=== PATIENT | female | born 1940 | race Caucasian/White ===

== ENCOUNTER 2016-06-22 13:52 | Observation (INO) | payer BC, MEDICARE ==
[~2016-06-22] VITALS: Ht 157.5 cm; Wt 70.0 kg
[~2016-06-22 13:52] MED LIST: ALPR2TAB PO; ATEN-51 PO; ATOR40TA68 PO; CALC-67 PO; CHOL100062 PO; CYCL-117 PO; FLUO40CA10 PO; HYDR-762 PO; LISI20TA11 PO; RIVA10TA PO; VIT1TABL85 PO
[2016-06-22 15:06] VITALS: Ht 157.5 cm; Wt 70.0 kg
[2016-06-22] MEDS ORDERED: SOD CHLORIDE 0.9% 1,000 ML IV STA (16:11)
[2016-06-22 17:01] LABS: ADD SCAN DIFF NO
[2016-06-22] MEDS ORDERED: SOD CHLORIDE 0.9% 1,000 ML IV SCH (17:02)
[2016-06-22 17:08] LABS: BASOPHILS % 0.6 % (0.0-2.0); EOSINOPHILS # 0.3 10^3/ul (0.0-0.5); EOSINOPHILS % 4.7 % (0.0-7.0); HEMATOCRIT 38.6 % (37.0-47.0); HEMOGLOBIN 12.6 g/dl (12.0-16.0); LYMPHOCYTES % 19.2 % (15.0-51.0); MEAN CORPUSCULAR HEMOGLOBIN 33.6 pg (29.0-33.0); MEAN CORPUSCULAR HGB CONC 32.6 g/dl (32.0-37.0); MEAN CORPUSCULAR VOLUME 102.9 fl (82.0-101.0); MEAN PLATELET VOLUME 10.8 fl (7.4-10.4); MONOCYTE # 0.5 10^3/ul (0.3-0.9); MONOCYTES % 9.3 % (0.0-11.0); NEUTROPHIL # 3.5 10^3/ul (1.6-7.5); NEUTROPHILS % 65.8 % (39.0-77.0); PLATELET COUNT 221 10^3/UL (140-415); RED BLOOD COUNT 3.75 10^6/ul (4.20-5.40); RED CELL DISTRIBUTION WIDTH 12.8 % (11.5-14.5); WHITE BLOOD COUNT 5.3 10^3/ul (4.8-10.8)
--- NOTE | 2016-06-22 17:09 | ERA ---
ER Documentation Chief Complaint Date/Time DATE: 06/22/16 TIME: 17:04 Chief Complaint [address]ENT BY DR ANDRADE FOR EVAL OF NEW ONSET AFIB HPI This is a 76-year-old female who was sent by her primary after being visited in a convalescent home for rehab for a right ankle fracture. The patient was noted to be tachycardic and was sent for A. fib workup. The patient says she is asymptomatic and is not short of breath having any headaches having any focal neurological complaints such as numbness weakness or speech change. She has had a slight cough while in the convalescent home. Denies chest pain denies any pain in the extremities. Patient denies any history of atrial fibrillation says she has been told she has had irregular heartbeat at times. The patient is currently on Xarelto 10 mg a day since May 06. Patient also states that she was told her left pupil is bigger than the right by the doctor seeing her as well as EMS. She states that her left eye is "bad" however she notes that she does not have irregular pupils at baseline. No headache no facial numbness or droop ROS All systems reviewed and are negative except as per history of present illness. Medications Home Meds Reported Medications Atorvastatin* (Atorvastatin*) 40 Mg Tablet, 40 MG PO QHS, #30 TAB 11/03/15 Lisinopril* (Lisinopril*) 20 Mg Tablet, 20 MG PO BID, #30 TAB 11/03/15 Hydrocodone Bit-Acetaminophen* ([place]*) 10-325 Mg Tablet, 1 TAB PO Q4H Y for PAIN, TAB 11/03/15 Atenolol* (Atenolol*) 25 Mg Tablet, 25 MG PO BID, TAB 08/14/14 Alprazolam* (Xanax*) 2 Mg Tablet, 2 MG PO QHS, TAB 02/11/14 Cyclobenzaprine Hcl (Flexeril) 10 Mg Tablet, 10 MG PO QHS 05/27/10 Fluoxetine Hcl* (Prozac*) 40 Mg Capsule, 40 MG PO DAILY 05/27/10 Discontinued Reported Medications Vit D3/Folic Acid/B2/B6/B12 (Folgard Tablet) 1 Each Tablet, 1 TAB PO DAILY, TAB 11/03/15 Calcium Carbonate/Vitamin D3* (Os-Frantz 500+D*) 1 Tab Tablet, 1 TAB PO BID, TAB 08/14/14 Discontinued Scripts Cholecalciferol* (Vitamin D3*) 1,000 Unit Tablet, 16980 UNIT PO weekly for 90 Days, TAB Prov:SHARAN ZAVALA MD 05/06/16 Rivaroxaban* (Xarelto*) 10 Mg Tablet, 10 MG PO WITH DINNER for 30 Days, TAB Prov:SHARAN ZAVALA MD 05/06/16 Allergies Allergies: Coded Allergies: No Known Allergy (Unverified , 06/22/16) PMhx/Soc History of Surgery: Yes (see note) Anesthesia Reaction: No Hx Neurological Disorder: Yes (seizures) Hx Respiratory Disorders: No Hx Cardiac Disorders: Yes (HTN, PVD) Hx Psychiatric Problems: No Hx Miscellaneous Medical Probl: Yes (see note) Hx Alcohol Use: Yes (wine with dinner) Hx Substance Use: No Hx Tobacco Use: No FmHx Family History: No coronary disease Physical Exam Vitals Vital Signs Date Time Temp Pulse Resp B/P Pulse Ox O2 Delivery O2 Flow Rate FiO2 06/22/16 15:06 97.8 107 20 118/82 99 Physical Exam C Const: Well-developed, well-nourished Head: Atraumatic, normocephalic Eyes: Normal Conjunctiva, left pupil is a few millimeters larger than the right., EOMI, normal sclera, no nystagmus ENT: Normal External Ears, Nose and Mouth, moist mucus membranes. Neck: Full range of motion. No meningismus, no lymphadenopathy. Resp: Clear to auscultation bilaterally, no wheezing, rhonchi, rales Cardio: Irregular rate rhythm slight tachycardia 114, no murmurs, S1 S2 present] Abd: Soft, non tender x 4, non distended. Normal bowel sounds, no guarding or rebound, no pulsitile abdominal masses or bruits Skin: No petechiae or rashes, no ecchymosis , no maculopapular rash Back: No midline or flank tenderness Ext: No cyanosis, or edema, FROM x 4, normal inspection, neurovascularly intact x 4, right foot is an ankle bbot Neur: Awake and alert, STR 5/5 x 4, sensation intact x 4, no focal findings, cerebellum intact Psych: Normal Mood and Affect Results 24 hrs Current Medications Medications (Trade) Dose Ordered Sig/Amy Route PRN Reason Start Time Stop Time Status Last Admin Dose Admin Sodium Chloride (NS) 1,000 ml @ 1,000 mls/hr Q1H STAT IV 06/22/16 16:11 06/22/16 17:10 06/22/16 16:50 Procedures/MDM EKG: Rate/Rhythm: Atrial fibrillation with rapid ventricular response heart rate 107 QRS, ST, QT: normal, QRS, QT] Impression: Atrial fibrillation Discussed the case with admitting physician. Will order CT chest rule out PE as the cause of her new onset atrial fibrillation. Will get CT brain. To evaluate the irregular pupil size however I feel her pupils are probably this with a baseline and because her left eye has very poor vision at baseline. We will likely get MRI in-house later tonight or tomorrow. Her heart rate is under 120 her A. fib is rapid ventricular response however controlled. She does not need a Cardizem drip due to the heart rate less than 120 Admitting physicians that he will increase her beta-shikha for rate control Departure Diagnosis: Primary Impression: New onset atrial fibrillation Condition: Stable MOE RIVERA DO Jun 22, 2016 17:09
[2016-06-22 17:17] LABS: CREATININE 0.86 mg/dl (0.44-1.00)
[2016-06-22 17:18] LABS: CALCIUM 8.9 mg/dl (8.4-10.2)
[2016-06-22] MEDS ORDERED: ONDANSETRON 4 MG INJ IV PRN ×2 (17:30→18:00)
[2016-06-22] MEDS ORDERED: ACETAMINOPHEN 325 MG TAB PO PRN ×2 (17:30→18:00)
[2016-06-22] MEDS ORDERED: IOHEXOL 100 ML ONE (17:50)
[2016-06-22] MEDS ORDERED: IOHEXOL 350MG/ML 50 ML BTL ONE (17:50)
[2016-06-22] MEDS ORDERED: SOD CHLORIDE 0.9% 100 ML ONE (17:50)
[2016-06-22] MEDS: SOD CHLORIDE 0.9% 1,000 ML IV SCH (17:53)
[2016-06-22] MEDS ORDERED: MAGNESIUM HYDROXIDE 30ML CUP PO PRN (18:00)
[2016-06-22] MEDS ORDERED: RIVAROXABAN 10 MG TABLET PO ONE (18:00)
[2016-06-22] MEDS ORDERED: DOCUSATE SODIUM 100 MG CAP PO PRN (18:00)
[2016-06-22] MEDS ORDERED: NACL 0.9% 3 ML SYG IV SCH (18:00)
--- NOTE | 2016-06-22 18:09 | HP ---
DATE OF ADMISSION: 06/22/2016 IDENTIFYING DATA: The patient is a 76-year-old female transferred from [facility] with irregular h eartbeat and a persistent cough. HISTORICAL EVENTS: This patient was admitted to [facility] on 05/01/2016 and underwent rig ht ankle surgery by Dr. Grant Machado, Her postoperative course was uncomplicated and to ensure safet y with respect to no weightbearing, she was transferred to [facility] after approximately 4 days fo llowing her surgery. I evaluated her about 1 week ago when she had a mild cough and mild accompanyi ng wheezing, and gave her a course of Zithromax along with Mucinex. With this intervention, she did improve modestly, but today she indicated that her cough again had worsened over the last 2 days. It is not productive. She has noted some wheezing. She denies substernal chest pain, radiating nec k, arm or jaw discomfort and there has been no pleuritic pain. The cough remains dry. There has be en no fever or chills. She has not sensed an irregular pulse or palpitations. She continues to hav e mild discomfort involving the right ankle. PAST MEDICAL HISTORY: Includes: 1. Diabetes mellitus, presently diet controlled. 2. History of hypertension. 3. Peripheral vascular disease. 4. Multiple knee surgeries and shoulder surgeries, bilateral hip replacement, complete hysterectomy , ventral hernia repair, bilateral carpal tunnel surgery, lumbar back surgery both in 2000 and 2006. 5. Right carotid endarterectomy, gastric bypass surgery in 2002. 6. Surgery for left septic knee. 7. Prior left ankle surgery. 8. Cholecystectomy. 9. History of ischemic colitis in 2011. 10. History of cerebrovascular disease with lacunar infarcts noted on MRI and subarachnoid bleed an d subdural hematoma related to trauma approximately 2 to 3 years ago. 11. History of fracture of the fibula in 04/2015. 12. Vitamin D deficiency. 13. History of seizure disorder. ALLERGIES INCLUDE QUESTIONABLE OXACILLIN. PRESENT MEDICATIONS: Include: 1. Xanax 2 mg at bedtime. 2. Atenolol 25 mg b.i.d. 3. Atorvastatin 40 mg each day. 4. Flexeril 10 mg at bedtime. 5. Prozac 40 mg per day. 6. Lisinopril 20 mg b.i.d. 7. Xarelto 10 mg daily. PHYSICAL EXAMINATION: GENERAL: Chronically ill female. VITAL SIGNS: Blood pressure 122/80, pulse 104, respirations 20. She was afebrile. EYES: Revealed the left pupil greater than the right. Both reactive to light. Extraocular muscles were full. NOSE, MOUTH AND THROAT: Normal. NECK: Supple. There was no jugular venous distention, thyroid enlargement or adenopathy. Carotids 2+, no bruits. LUNGS: Revealed rhonchi and some expiratory wheezes bilaterally. HEART: Rhythm irregularly irregular with a variable I to II/ systolic murmur. No third or fourth sound. ABDOMEN: Nontender. Liver and spleen were not palpable. No masses or tenderness were noted. EXTREMITIES: No edema. The right foot was in a cast. The left revealed no edema. The left foot w as warm. IMPRESSION: 1. New onset atrial fibrillation. Must exclude pulmonary emboli, seems unlikely given her treatmen t with Xarelto DVT prophylaxis, but nonetheless we will pursue. Likely has asthmatic bronchitis. 2. The left pupil which is larger than the right with chronic diminution in vision involving the le ft eye, improved with glasses, cause unclear. 3. Hypertension. 4. Recent right ankle surgery. PLAN: CT of the brain if negative, MRI of the brain. Neurology to see. Orthopedic followup, Dr. Colleen Machado has been notified. The patient will be admitted. Rate control with beta blockers. Card iology to see. Will change Xarelto to Eliquis. Dictated By: CATHY HOWELL/NTS Conf#: [id number] DID#: [id number]
--- NOTE | 2016-06-22 18:21 | RADRPT ---
PROCEDURE: CT Head without contrast. CLINICAL INDICATION: Pupil irregularity with headaches TECHNIQUE: The study was performed utilizing a GE 64-slice multidetector CT scanner. Direct spiral axial CT images of the brain were obtained from the vertex to the skull base without contrast. The CTDI vol is 43.86 mGy and the DLP is 720.23 mGy-cm. The images were reviewed on a PACS workstation. COMPARISON: No prior studies are available for comparison. FINDINGS: Mild diffuse atrophy is seen with a compensatory ventricular enlargement. Mild white matter disease in the periventricular and deep white matter is seen. The das-white matter differentiation is selam ntained. No intra or extra-axial fluid collection or mass effect or shift in the midline structures is seen. Small air fluid levels in the bilateral sphenoid sinuses is seen with mild mucosal thicke geovanny in the bilateral ethmoid sinuses. Mucosal thickening in the bilateral maxillary sinuses is inc ompletely visualized. The mastoid air cells, orbits, and calvarium are unremarkable. Vascular calci fications are seen. IMPRESSION: 1. No acute intracranial pathology. 2. Mild diffuse volume loss and mild chronic microvascular ischemic changes. 3. Paranasal sinus disease including small air-fluid levels in the bilateral sphenoid sinuses which may represent acute sinusitis in the correct clinical setting. RPTAT: HPNM Physician David Date Time Electronically viewed and signed by Physician David on 06/22/2016 18:21 /
--- NOTE | 2016-06-22 18:35 | RADRPT ---
PROCEDURE: CT ANGIOGRAPHY CHEST CLINICAL INDICATION: Shortness of breath TECHNIQUE: Volumetrically acquired images of the thorax obtained with intravenous contrast were re formatted in the axial, coronal, and sagittal planes. CTDI = 15.2 mGy; DLP = 583 mGy-cm. 100 cc of Omnipaque 350 was administered. 3D MIP multiplanar reconstructions were performed and evaluated on the workstation. One or more of the following dose reduction technique were used: Automatic exposure control, adjustment of the mA and/or kV according to patient size, and use of iterative reconstruct ion technique. COMPARISON: 05/03/2016. FINDINGS: LOWER NECK AND CHEST WALL: Normal. AIRWAYS: The trachea and large airways are normal. Moderate bronchial wall thickening is seen. LUNGS: Scattered areas of interstitial thickening, architectural distortion, and volume loss seen wi th a mild lower lobe predominance. Nonspecific textured ground-glass is seen in the left upper lobe , likely atelectasis. No suspicious nodules, masses, or consolidation. PLEURA: Unremarkable. No pleural thickening or effusions. LYMPH NODES: No significant axillary, hilar, or mediastinal lymphadenopathy by CT size criteria. CARDIAC: Mild cardiomegaly. No pericardial effusion. VASCULAR: Technically adequate opacification of the pulmonary arteries; no fill defects are seen. T he aorta and main pulmonary artery are normal in caliber. Aortic and coronary atherosclerotic calci fications are present. OSSEOUS: Status post left shoulder replacement. Scattered degenerative changes of the thoracic spin e is visualized. Limited evaluation of the upper abdomen demonstrates punctate granulomas in the spleen. Status post cholecystectomy.. IMPRESSION: 1. No pulmonary embolism. 2. Minimal bronchial wall thickening may be sequela of bronchitis, asthma, or other nonspecific air way inflammation. 3. Nonspecific interstitial thickening and architectural distortion and volume loss suggestive of a mild nonspecific interstitial fibrosis. Etiologies which can be associated with this pattern may be idiopathic, collagen vascular diseases, drug or inhalation exposures, hypersensitivity pneumonitis, and others. 4. Mild cardiomegaly with aortic and coronary atherosclerosis. 5. Status post cholecystectomy. RPTAT:PP .Jovanny Beaulieu MD, Date Time Electronically viewed and signed by .Jovanny Beaulieu MD, on 06/22/2016 18:35 .V/
[2016-06-22 19:05] LABS: INR 1.11; PROTIME 14.3 Sec (12.2-14.2); PT RATIO 1.1
[2016-06-22 19:06] LABS: PARTIAL THROMBOPLASTIN TIME 28.5 Sec (25.0-35.0)
[2016-06-22] MEDS: ASPIRIN 81 MG TAB PO SCH (19:18)
[2016-06-22] MEDS: CEFTRIAXONE 2 GM/50 ML (PMX) 50 ML IVPB SCH (19:19)
[2016-06-22 19:53] LABS: TROPONIN-I < 0.012 ng/ml (0.00-0.12)
[2016-06-22 20:00] VITALS: BP 179/102; RESP 21
[2016-06-22 20:34] VITALS: PULSE 98
[2016-06-22] MEDS: CYCLOBENZAPRINE 10 MG TAB PO SCH (21:00)
[2016-06-22] MEDS ORDERED: ZOLPIDEM 5 MG TAB PO PRN (22:00)
[2016-06-22] MEDS: LISINOPRIL 10 MG TAB PO SCH (22:49)
[2016-06-22] MEDS: GUAIFENESIN/DM (SR) TAB PO SCH (22:49)
[2016-06-22] MEDS: ATORVASTATIN 40 MG TAB PO SCH (22:49)
[2016-06-22] MEDS: ATENOLOL 25 MG TAB PO SCH (22:50)
[2016-06-22] MEDS: ALPRAZOLAM 1 MG TAB PO SCH (22:51)
[2016-06-22] MEDS: LEVETIRACETAM 500 MG TAB PO SCH (22:52)
[2016-06-22] MEDS: PANTOPRAZOLE (EC) 40 MG TAB PO SCH (22:52)
[2016-06-22] MEDS: HYDROCODONE/APAP (10/325) TAB PO PRN (22:52)
--- NOTE | 2016-06-22 23:45 | CONS ---
DATE OF ADMISSION: 06/22/2016 DATE OF CONSULTATION: 06/22/2016 TYPE OF CONSULTATION: Neurology. Thank you, Dr. Mendoza, for your kind referral for evaluation of pupillary asymmetry. HISTORY OF PRESENT ILLNESS: Patient developed some cough and was found to have atrial fibrillation, was sent for evaluation to the hospital. She has history of recent ankle surgery and that is the reason for her to be in convalescent facility. The patient stated that she had cataract surgery in bilateral eyes. 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 Mendoza's note that was also a concern of his that her left pupil seemed to be larger. PAST MEDICAL HISTORY: Diabetes, hypertension, peripheral vascular disease, severe osteoarthritis, status post multiple surgeries and redo surgeries, hip replacements, multiple knee surgeries and surgeries on the ankles. She had gastric bypass surgery as well as right carotid endarterectomy, history of ischemic colitis, history of traumatic subarachnoid and subdural a few years ago , as well as history of seizures. The patient stated that she had 1 episode of seizure about 6 months ago and since has been taking Keppra 500 twice daily. No seizures since. ALLERGIES: SHE IS ALLERGIC TO OXACILLIN. SOCIAL HISTORY: No alcohol, tobacco, drug use. FAMILY HISTORY: Noncontributory. REVIEW OF SYSTEMS: All pertinent positives included in the above history of present illness. The patient has no other new neurological complaints of weakness, numbness, dysarthria, dysphasia, headache, diplopia, or vertigo. CURRENT MEDICATIONS: 1. Xarelto. 2. Prozac. 3. Protonix. 4. Xanax. 5. Tenormin. 6. Lipitor. 7. Flexeril 8. Zestril. 9. Aspirin. At least months ago the patient was still on Keppra during her hospitalization. PHYSICAL EXAMINATION: VITAL SIGNS: Temperature 97.4, pulse 97, respirations 20, blood pressure 179/ 102. GENERAL: She was not in acute distress, lying in bed. HEENT: Normocephalic, atraumatic head. NECK: No carotid bruits. No thyromegaly. LUNGS: Clear to auscultation bilaterally. CARDIAC: Irregularly irregular cardiac rhythm. ABDOMEN: Soft, present bowel sounds. EXTREMITIES: No cyanosis, clubbing or edema. The patient has postsurgical deformities in the knees and ankles. NEUROLOGIC: She is awake, alert, and oriented x3 with fluent speech. Cranial nerve examination shows intact visual aquino bilaterally. She has severely diminished visual acuity in the left eye, not consistently counts numbers, but sees the light. Pupils are reactive on the right from 3 to 2 mm briskly, on the left about 4 mm sluggishly to approximately 3.5 mm. Extraocular movements intact without nystagmus. Symmetrical face. Preserved facial strength and sensation. Tongue is in midline. Palate elevates symmetrically. Motor strength examination seems to be preserved in all extremities. The examination is limited secondary to severe arthritis, postsurgical deformities and pain, especially in the right shoulder. The patient is not able to lift the arm, but strength is preserved distal right arm as well as across the elbow, preserved strength in the left upper extremity and seemed to be symmetrical in lower extremities as well, again, some give-way secondary to pain at least 3+/5, maybe even better. Sensory examination grossly intact to light touch and pain. Deep tendon reflexes 2+ upper extremities, absent in lower extremities. Withdrawal response to plantar stimulation. Coordination preserved on finger-to -finger testing. No dysmetria or major tremor. Gait was not assessed. Patient had a CT of the head done which shows mild volume loss and chronic white matter disease. In March last year she had carotid ultrasound which shows no evidence of hemodynamically significant internal carotid artery stenosis and normal flow in the vertebral arteries bilaterally. LABORATORY DATA: Her labs shows essentially normal CBC. BUN 30, creatinine 0.86. The rest of basic metabolic panel within normal limits. Normal INR. IMPRESSION: Seizure disorder. According to the patient, she had one episode of generalized seizure approximately 6 months ago, no episodes since on Keppra 500 twice daily. I see Keppra as her medication during previous hospitalizations , but not on this admission, so will restart Keppra. Patient has anisocoria with left pupil wider and sluggishly reactive to light. The patient has severely impaired visual acuity in the left eye and that has been present for 5 to 10 years. Her pupils bilaterally are post-surgical. I do not think that the patient suffered a stroke, even though she has atrial fibrillation, but she is anticoagulated. I think that pupillary asymmetry seemed to be benign. Again, I do not know how acute they are, but it may relate to her previous eye surgeries and right eye visual loss. I do not think she needs more workup for the pupillary asymmetry. Continue current treatment. Thank you very much for this interesting consultation. Dictated By: ARLEEN RAMIREZ/MARY KATE Conf#: [id number] DID#: [id number] MTDD
[2016-06-23] VITALS (12 sets, daily range): BP systolic 126–148; BP diastolic 74–97; PULSE 77–110; RESP 17–19
[2016-06-23] MEDS ORDERED: ATENOLOL 25 MG TAB PO ONE
[2016-06-23] MEDS: PROMETHAZINE/CODEINE 5ML CUP PO PRN ×2 (00:44→21:35)
[2016-06-23] MEDS: CYCLOBENZAPRINE 10 MG TAB PO SCH ×2 (00:44→21:34)
[2016-06-23] MEDS: SOD CHLORIDE 0.9% 1,000 ML IV SCH ×2 (07:13→20:33)
[2016-06-23 07:33] LABS: ADD SCAN DIFF NO
[2016-06-23 07:39] LABS: BASOPHILS % 0.4 % (0.0-2.0); EOSINOPHILS # 0.3 10^3/ul (0.0-0.5); EOSINOPHILS % 6.3 % (0.0-7.0); HEMATOCRIT 37.4 % (37.0-47.0); HEMOGLOBIN 11.9 g/dl (12.0-16.0); LYMPHOCYTES # 0.9 10^3/ul (0.8-2.9); LYMPHOCYTES % 19.2 % (15.0-51.0); MEAN CORPUSCULAR HEMOGLOBIN 33.1 pg (29.0-33.0); MEAN CORPUSCULAR HGB CONC 31.8 g/dl (32.0-37.0); MEAN CORPUSCULAR VOLUME 103.9 fl (82.0-101.0); MEAN PLATELET VOLUME 10.4 fl (7.4-10.4); MONOCYTE # 0.5 10^3/ul (0.3-0.9); MONOCYTES % 11.3 % (0.0-11.0); NEUTROPHILS % 62.6 % (39.0-77.0); PLATELET COUNT 191 10^3/UL (140-415); RED CELL DISTRIBUTION WIDTH 12.9 % (11.5-14.5); WHITE BLOOD COUNT 4.8 10^3/ul (4.8-10.8)
[2016-06-23] MEDS: IPRATROPIUM (NEB) 0.5 MG/2.5 ML AMP HHN SCH (08:25)
--- NOTE | 2016-06-23 08:28 | CONS ---
Date/Time of Note Date/Time of Note DATE: 06/23/16 TIME: 08:13 Assessment/Plan Assessment/Plan Chief Complaint/Hosp Course PAF- non valvular, new onset with RVR. patient asymptomatic. unclear duration while in afib. would recommend rate control with avn blockade and anticoag given elevated [id number] score (at least 5) - cont xarelto 20mg daily - cont atenolol - add cardizem 240mg daily can increase dose for goal resting HR < 100 - mag 2g iv x 1 - f/u as outpt with consideration for cardioversion if remains in afib HTN- controlled HLD- on statin PAD- stable, h/o of LE stent - cont asa and statin Mild - f/u as outpt Problems: Consultation Date/Type/Reason Admit Date/Time Jun 22, 2016 at 17:03 Date of Consultation: Jun 23, 2015 Type of Consultation: Cardiology Reason for Consultation Afib Referring Provider: CATHY ANDRADE MD Hx of Present Illness 76 y.o. with h/o of htn, pad, dm2 diet controlled who presents for afib with rvr. Pt with r ankle surgery 04/2016, has been in [facility] since. Pt states doing well with ambulation, no cp/sob. denies palpitations, dizziness, fainting. No pnd, orthopnea. still mild edema in r ankle at surgical site. pt reported to have fast hr, afib and transferred to [facility] ED, though she is unsure why given she was asymptomatic. Pt given iv diltiazem with improved rate, but not started on gtt. Pt this am with cont afib rvr rates 110s-120s. bp stable no palpitations, sob, cp. Pt has been started on anticoag for stroke prophy with xarelto 20mg daily. denies h/o of recent bleeding. pt did have report of uneven pupil diameter, neuro evaluated, believed to be anisocoria due to previous surgery. stroke unlikely. chest CT negative for PE, ? interstitial markings EKG reviewed: afib with rvr. no acute st changes. Constitutional: no complaints Eyes: no complaints ENT: no complaints Respiratory: no complaints Cardiovascular: no complaints Gastrointestinal: no complaints Genitourinary: no complaints Musculoskeletal: bone/joint pain Skin: no complaints Neurologic: no complaints, other Psychological: no complaints Immunologic: no complaints Past Medical History DM2 HTN PAD- R SFA/pop stenosis R carotid stenosis s/p CEA Seizures Vitamin D def Past Surgical History Multiple knee surgeries and shoulder surgeries, bilateral hip replacement, complete hysterectomy, ventral hernia repair, bilateral carpal tunnel surgery, lumbar back surgery both in 2000 and 2006. Right carotid endarterectomy, gastric bypass surgery in 2002.Surgery for left septic knee. Prior left ankle surgery. Cholecystectomy. Family History Significant Family History: other (no cardiac hx) Social History Alcohol Use: sober Smoking Status: Never smoker Drug Use: none Exam/Review of Systems Vital Signs Vitals Vital Signs Date Time Temp Pulse Resp B/P Pulse Ox O2 Delivery O2 Flow Rate FiO2 06/23/16 04:52 98.2 100 18 126/76 92 06/22/16 19:54 Room Air Intake and Output 06/22/16 06/22/16 06/23/16 15:00 23:00 07:00 Intake Total 400 ml Output Total 400 ml Balance 0 ml Exam Constitutional: alert, oriented Psych: anxiety, nl mood/affect, no complaints Head: atraumatic, normocephalic Eyes: EOMI, nl conjunctiva, nl lids, nl sclera ENMT: nl nasal mucosa & septum Neck: supple, No non-tender Respiratory: clear to auscultation, normal air movement Cardiovascular: edema (mild r ankle. ), irregular rhythm (rapid), nl pulses, No S3, No S4, No murmurs/extra sounds, No systolic murmur Gastrointestinal: nl liver, spleen, non-tender, soft Musculoskeletal: nl extremities to inspection Extremities: normal pulses Neurological: CLOTH REELER II-XII intact, nl mental status, nl speech, nl strength Results Result Diagram: 06/23/16 0630 06/22/16 1638 Results 24 hrs Laboratory Tests Test 06/22/16 16:00 06/22/16 16:38 06/23/16 06:30 Activated Partial Thromboplast Time 28.5 INR International Normalized Ratio 1.11 Magnesium Level 2.0 Prothrombin Time 14.3 H Prothrombin Time Ratio 1.1 Troponin I < 0.012 Anion Gap 16 Basophils # 0.0 0.0 Basophils % 0.6 0.4 Blood Urea Nitrogen 30 H Calcium Level 8.9 Carbon Dioxide Level 23 Chloride Level 109 Creatinine 0.86 Eosinophils # 0.3 0.3 Eosinophils % 4.7 6.3 Glucose Level 93 Hematocrit 38.6 # 37.4 Hemoglobin 12.6 # 11.9 L Lymphocytes # 1.0 0.9 Lymphocytes % 19.2 19.2 Mean Corpuscular Hemoglobin 33.6 H 33.1 H Mean Corpuscular Hemoglobin Concent 32.6 31.8 L Mean Corpuscular Volume 102.9 H 103.9 H Mean Platelet Volume 10.8 #H 10.4 Monocytes # 0.5 0.5 Monocytes % 9.3 11.3 H Neutrophils # 3.5 3.0 Neutrophils % 65.8 62.6 Nucleated Red Blood Cells # 0.0 0.0 Nucleated Red Blood Cells % 0.0 0.0 Platelet Count 221 191 Potassium Level 5.0 Red Blood Count 3.75 #L 3.60 L Red Cell Distribution Width 12.8 12.9 Sodium Level 143 White Blood Count 5.3 4.8 Medications Medications Current Medications Alprazolam (Xanax) 2 mg QHS PO Last administered on 06/22/16 22:51; Admin Dose 2 MG; Start 06/22/16 at 21:00 Atenolol (Tenormin) 25 mg BID PO Last administered on 06/22/16 22:50; Admin Dose 25 MG; Start 06/22/16 at 21:00 Atorvastatin Calcium (Lipitor) 40 mg QHS PO Last administered on 06/22/16 22:49 ; Admin Dose 40 MG; Start 06/22/16 at 21:00 Cyclobenzaprine HCl (Flexeril) 10 mg QHS PO Last administered on 06/23/16 00: 44; Admin Dose 10 MG; Start 06/22/16 at 21:00 Fluoxetine HCl (Prozac) 40 mg DAILY PO ; Start 06/23/16 at 09:00 Acetaminophen/ Hydrocodone Bitart ([place] (10/325)) 1 tab Q4H PRN PO PAIN Last administered on 06/22/16 22:52; Admin Dose 1 TAB; Start 06/22/16 at 18:00 Lisinopril (Zestril) 10 mg BID PO Last administered on 06/22/16 22:49; Admin Dose 10 MG; Start 06/22/16 at 21:00 Guaifenesin/ Dextromethorphan (Mucinex Dm) 1 tab BID PO Last administered on 22:49; Admin Dose 1 TAB; Start 06/22/16 at 21:00 Rivaroxaban 20 mg 20 mg HS PO ; Start 06/23/16 at 21:00 Ceftriaxone Sodium 50 ml @ 100 mls/hr Q24H IVPB Last administered on 06/22/16 19:19; Admin Dose 100 MLS/HR; Start 06/22/16 at 18:30 Sodium Chloride (NS) 1,000 ml @ 75 mls/hr [id number] IV ; Start 06/22/16 at 17:53 Ondansetron HCl (Zofran Inj) 4 mg Q6H PRN IV NAUSEA AND/OR VOMITING; Start 06/22 at 18:00 Acetaminophen (Tylenol Tab) 650 mg Q6H PRN PO PAIN LEVEL 1-3 OR FEVER; Start at 18:00 Docusate Sodium (Colace) 100 mg Q12H PRN PO CONSTIPATION; Start 06/22/16 at 18: 00 Magnesium Hydroxide (Milk Of Mag) 30 ml DAILY PRN PO CONSTIPATION; Start at 18:00 Pantoprazole (Protonix Tab) 40 mg DAILY PO Last administered on 06/22/16 22:52 ; Admin Dose 40 MG; Start 06/22/16 at 22:00 Aspirin (Aspirin) 81 mg DAILY PO Last administered on 06/22/16 19:18; Admin Dose 81 MG; Start 06/22/16 at 18:30 Levetiracetam (Keppra) 500 mg BID PO Last administered on 06/22/16 22:52; Admin Dose 500 MG; Start 06/22/16 at 22:00 Zolpidem Tartrate (Ambien) 5 mg HS PRN PO INSOMNIA; Start 06/22/16 at 22:00 Promethazine HCl/ Codeine (Phenergan/ Codeine) 10 ml Q8H PRN PO COUGH Last administered on 06/23/16 00:44; Admin Dose 10 ML; Start 06/23/16 at 00:00 Procedures Procedures CTA report/brain ct report reviewed MAINOR MARTINO Jun 23, 2016 08:23
[2016-06-23] MEDS ORDERED: DILTIAZEM (CD) 240 MG CAP PO ONE (08:30)
[2016-06-23] MEDS ORDERED: MAGNESIUM SULFATE 2 GM/50 ML 50 ML IVPB ONE (08:30)
[2016-06-23 08:53] LABS: ALBUMIN 3.4 g/dl (3.3-4.9)
[2016-06-23 08:54] LABS: POTASSIUM 4.1 mmol/L (3.5-5.1)
[2016-06-23 08:56] LABS: ALBUMIN/GLOBULIN RATIO 1.25; BILIRUBIN,INDIRECT 0.1 mg/dl (0-1.1); BILIRUBIN,TOTAL 0.1 mg/dl (0.2-1.3); CREATININE 0.76 mg/dl (0.44-1.00); TOTAL PROTEIN 6.1 g/dl (6.1-8.1)
[2016-06-23 08:57] LABS: CALCIUM 8.6 mg/dl (8.4-10.2)
[2016-06-23] MEDS: LEVALBUTEROL (NEB) 0.63 MG/3 ML AMP NEB SCH ×2 (09:00→13:00)
[2016-06-23 09:27] LABS: THYROID STIMULATING HORMONE 0.263 MIU/L (0.465-4.680)
[2016-06-23] MEDS: FLUOXETINE 20 MG CAP PO SCH (09:38)
[2016-06-23] MEDS: GUAIFENESIN/DM (SR) TAB PO SCH ×2 (09:38→21:33)
[2016-06-23] MEDS: ASPIRIN 81 MG TAB PO SCH (09:38)
[2016-06-23] MEDS: LEVETIRACETAM 500 MG TAB PO SCH ×2 (09:38→21:34)
[2016-06-23] MEDS: HYDROCODONE/APAP (10/325) TAB PO PRN ×3 (09:38→23:35)
[2016-06-23] MEDS: ATENOLOL 25 MG TAB PO SCH ×2 (09:39→21:34)
[2016-06-23] MEDS: LISINOPRIL 10 MG TAB PO SCH ×2 (09:39→21:34)
[2016-06-23] MEDS: PANTOPRAZOLE (EC) 40 MG TAB PO SCH (09:39)
[2016-06-23] MEDS: CEFTRIAXONE 2 GM/50 ML (PMX) 50 ML IVPB SCH (17:35)
--- NOTE | 2016-06-23 20:18 | PN ---
Date/Time of Note Date/Time of Note DATE: 06/23/16 TIME: 20:11 Assessment/Plan VTE Prophylaxis VTE Prophylaxis Intervention: other Lines/Catheters IV Catheter Type (from Nrs): Saline Lock Urinary Cath still in place: Yes Reason Cath still needed: urinary retention Assessment/Plan Chief Complaint/Hosp Course 1.new onset A fib .on Xarelto and cardizem , She is without complaints and seems comfortable , will continue current meds and follow cardiology recommendations . 2.h/o seizure disorder , on Keppra , seen by neurology 3.HTN 4.PAD 5.mild 6.bronchitis , on rocephin , she is better without cough or wheezing . Problems: Subjective 24 Hr Interval Summary Free Text/Dictation She is in bed awake and alert . No complaints . Constitutional: no complaints Respiratory: no complaints Cardiovascular: no complaints Gastrointestinal: no complaints Musculoskeletal: no complaints Exam/Review of Systems Vital Signs Vitals Vital Signs Date Time Temp Pulse Resp B/P Pulse Ox O2 Delivery O2 Flow Rate FiO2 06/23/16 17:04 98.1 97 19 127/74 96 06/22/16 19:54 Room Air Intake and Output 06/22/16 06/22/16 06/23/16 15:00 23:00 07:00 Intake Total 400 ml Output Total 400 ml Balance 0 ml Exam R ankle s/p surgery . Constitutional: alert Psych: no complaints Respiratory: clear to auscultation Cardiovascular: irregular rhythm Gastrointestinal: soft Results Result Diagram: 06/23/16 0630 06/23/16 0630 Results 24 hrs Laboratory Tests Test 06/23/16 06:30 Alanine Aminotransferase (ALT/SGPT) 39 Albumin 3.4 Albumin/Globulin Ratio 1.25 Alkaline Phosphatase 102 Anion Gap 17 H Aspartate Amino Transf (AST/SGOT) 36 Basophils # 0.0 Basophils % 0.4 Blood Urea Nitrogen 24 H Calcium Level 8.6 Carbon Dioxide Level 22 Chloride Level 109 Creatinine 0.76 Direct Bilirubin 0.00 Eosinophils # 0.3 Eosinophils % 6.3 Globulin 2.70 Glucose Level 82 Hematocrit 37.4 Hemoglobin 11.9 L Indirect Bilirubin 0.1 Lymphocytes # 0.9 Lymphocytes % 19.2 Magnesium Level 1.8 Mean Corpuscular Hemoglobin 33.1 H Mean Corpuscular Hemoglobin Concent 31.8 L Mean Corpuscular Volume 103.9 H Mean Platelet Volume 10.4 Monocytes # 0.5 Monocytes % 11.3 H Neutrophils # 3.0 Neutrophils % 62.6 Nucleated Red Blood Cells # 0.0 Nucleated Red Blood Cells % 0.0 Platelet Count 191 Potassium Level 4.1 Red Blood Count 3.60 L Red Cell Distribution Width 12.9 Sodium Level 144 Thyroid Stimulating Hormone (TSH) 0.263 L Total Bilirubin 0.1 L Total Protein 6.1 White Blood Count 4.8 Medications Medications Current Medications Alprazolam (Xanax) 2 mg QHS PO Last administered on 06/22/16 22:51; Admin Dose 2 MG; Start 06/22/16 at 21:00 Atenolol (Tenormin) 25 mg BID PO Last administered on 06/23/16 09:39; Admin Dose 25 MG; Start 06/22/16 at 21:00 Atorvastatin Calcium (Lipitor) 40 mg QHS PO Last administered on 06/22/16 22:49 ; Admin Dose 40 MG; Start 06/22/16 at 21:00 Cyclobenzaprine HCl (Flexeril) 10 mg QHS PO Last administered on 06/23/16 00: 44; Admin Dose 10 MG; Start 06/22/16 at 21:00 Fluoxetine HCl (Prozac) 40 mg DAILY PO Last administered on 06/23/16 09:38; Admin Dose 40 MG; Start 06/23/16 at 09:00 Acetaminophen/ Hydrocodone Bitart ([place] (10/325)) 1 tab Q4H PRN PO PAIN Last administered on 06/23/16 18:10; Admin Dose 1 TAB; Start 06/22/16 at 18:00 Lisinopril (Zestril) 10 mg BID PO Last administered on 06/23/16 09:39; Admin Dose 10 MG; Start 06/22/16 at 21:00 Guaifenesin/ Dextromethorphan (Mucinex Dm) 1 tab BID PO Last administered on 09:38; Admin Dose 1 TAB; Start 06/22/16 at 21:00 Rivaroxaban 20 mg 20 mg HS PO ; Start 06/23/16 at 21:00 Ceftriaxone Sodium 50 ml @ 100 mls/hr Q24H IVPB Last administered on 17:35; Admin Dose 100 MLS/HR; Start 06/22/16 at 18:30 Sodium Chloride (NS) 1,000 ml @ 75 mls/hr [id number] IV ; Start 06/22/16 at 17:53 Ondansetron HCl (Zofran Inj) 4 mg Q6H PRN IV NAUSEA AND/OR VOMITING; Start 06/22 at 18:00 Acetaminophen (Tylenol Tab) 650 mg Q6H PRN PO PAIN LEVEL 1-3 OR FEVER; Start at 18:00 Docusate Sodium (Colace) 100 mg Q12H PRN PO CONSTIPATION; Start 06/22/16 at 18: 00 Magnesium Hydroxide (Milk Of Mag) 30 ml DAILY PRN PO CONSTIPATION; Start at 18:00 Pantoprazole (Protonix Tab) 40 mg DAILY PO Last administered on 06/23/16 09:39 ; Admin Dose 40 MG; Start 06/22/16 at 22:00 Aspirin (Aspirin) 81 mg DAILY PO Last administered on 06/23/16 09:38; Admin Dose 81 MG; Start 06/22/16 at 18:30 Levetiracetam (Keppra) 500 mg BID PO Last administered on 06/23/16 09:38; Admin Dose 500 MG; Start 06/22/16 at 22:00 Zolpidem Tartrate (Ambien) 5 mg HS PRN PO INSOMNIA; Start 06/22/16 at 22:00 Promethazine HCl/ Codeine (Phenergan/ Codeine) 10 ml Q8H PRN PO COUGH Last administered on 06/23/16 00:44; Admin Dose 10 ML; Start 06/23/16 at 00:00 KATE PERALES MD Jun 23, 2016 20:18
[2016-06-23] MEDS ORDERED: RIVAROXABAN 20 MG TABLET PO SCH (21:00)
[2016-06-23] MEDS: ATORVASTATIN 40 MG TAB PO SCH (21:34)
[2016-06-23] MEDS: ALPRAZOLAM 1 MG TAB PO SCH (21:34)
[2016-06-24] VITALS (8 sets, daily range): BP systolic 120–140; BP diastolic 78–95; PULSE 65–118; RESP 18–20
[2016-06-24] MEDS: HYDROCODONE/APAP (10/325) TAB PO PRN ×2 (04:35→09:28)
[2016-06-24 07:57] LABS: ADD SCAN DIFF NO
[2016-06-24 08:03] LABS: ALBUMIN 3.7 g/dl (3.3-4.9)
[2016-06-24 08:04] LABS: POTASSIUM 3.9 mmol/L (3.5-5.1)
[2016-06-24 08:05] LABS: BASOPHILS % 0.5 % (0.0-2.0); EOSINOPHILS # 0.3 10^3/ul (0.0-0.5); EOSINOPHILS % 4.5 % (0.0-7.0); HEMATOCRIT 39.7 % (37.0-47.0); HEMOGLOBIN 13.2 g/dl (12.0-16.0); LYMPHOCYTES # 1.1 10^3/ul (0.8-2.9); LYMPHOCYTES % 18.5 % (15.0-51.0); MEAN CORPUSCULAR HEMOGLOBIN 33.5 pg (29.0-33.0); MEAN CORPUSCULAR HGB CONC 33.1 g/dl (32.0-37.0); MONOCYTE # 0.6 10^3/ul (0.3-0.9); MONOCYTES % 10.5 % (0.0-11.0); NEUTROPHIL # 3.9 10^3/ul (1.6-7.5); PLATELET COUNT 232 10^3/UL (140-440); RED BLOOD COUNT 3.93 10^6/ul (4.20-5.40); RED CELL DISTRIBUTION WIDTH 13.9 % (11.5-14.5); WHITE BLOOD COUNT 5.9 10^3/ul (4.8-10.8)
[2016-06-24 08:06] LABS: CREATININE 0.72 mg/dl (0.44-1.00)
[2016-06-24 08:07] LABS: ALBUMIN/GLOBULIN RATIO 1.23; BILIRUBIN,INDIRECT 0.4 mg/dl (0-1.1); BILIRUBIN,TOTAL 0.4 mg/dl (0.2-1.3); CALCIUM 8.8 mg/dl (8.4-10.2); TOTAL PROTEIN 6.7 g/dl (6.1-8.1)
[2016-06-24] MEDS: LEVETIRACETAM 500 MG TAB PO SCH (09:28)
[2016-06-24] MEDS: ASPIRIN 81 MG TAB PO SCH (09:28)
[2016-06-24] MEDS: LISINOPRIL 10 MG TAB PO SCH (09:29)
[2016-06-24] MEDS: ATENOLOL 25 MG TAB PO SCH (09:29)
[2016-06-24] MEDS: GUAIFENESIN/DM (SR) TAB PO SCH (09:29)
[2016-06-24] MEDS: PANTOPRAZOLE (EC) 40 MG TAB PO SCH (09:29)
[2016-06-24] MEDS: FLUOXETINE 20 MG CAP PO SCH (09:30)
[2016-06-24] MEDS: SOD CHLORIDE 0.9% 1,000 ML IV SCH (09:30)
--- NOTE | 2016-06-24 10:39 | CONS ---
Date/Time of Note Date/Time of Note DATE: 06/24/16 TIME: 10:34 Assessment/Plan Assessment/Plan Chief Complaint/Hosp Course PAF- non valvular, new onset with RVR. patient asymptomatic. unclear duration while in afib. would recommend rate control with avn blockade and anticoag given elevated [id number] score (at least 5) - cont xarelto 20mg daily - cont atenolol - add cardizem 240mg daily - no further cardiac evaluation required, will f/u as outpt with consideration for cardioversion if remains in afib HTN- controlled HLD- on statin PAD- stable, h/o of LE stent - cont asa and statin Mild - f/u as outpt Problems: Consultation Date/Type/Reason Admit Date/Time Jun 22, 2016 at 17:03 Initial Consult Date 06/23/15 Type of Consultation: Cardiology Referring Provider: CATHY ANDRADE MD 24 HR Interval Summary Free Text/Dictation no acute events. pt states walked yesterday, no cp/sob. no palpitations, dizziness, fainting. tele tracing reviewed: afib, hrs 80s-90s Constitutional: improved Detailed Summary Respiratory: no complaints Cardiovascular: no complaints Gastrointestinal: no complaints Exam/Review of Systems Vital Signs Vitals Vital Signs Date Time Temp Pulse Resp B/P Pulse Ox O2 Delivery O2 Flow Rate FiO2 06/24/16 08:36 103 06/24/16 08:23 98.5 19 140/84 99 06/22/16 19:54 Room Air Intake and Output 06/23/16 06/23/16 06/24/16 15:00 23:00 07:00 Intake Total 1050 ml 500 ml Output Total 1800 ml 450 ml Balance -750 ml 50 ml Exam Constitutional: alert, oriented Psych: anxiety, nl mood/affect, no complaints Head: atraumatic, normocephalic Eyes: EOMI, nl conjunctiva, nl lids, nl sclera ENMT: nl nasal mucosa & septum Neck: supple, No non-tender Respiratory: clear to auscultation, normal air movement Cardiovascular: edema (mild r ankle. ), irregular rhythm (regular rate) nl pulses, No S3, No S4, ii/vi andi Gastrointestinal: nl liver, spleen, non-tender, soft Musculoskeletal: nl extremities to inspection Extremities: normal pulses Neurological: COLD MILL INSPECTOR II-XII intact, nl mental status, nl speech, nl strength Results Result Diagram: 06/24/16 0715 06/24/16 0715 Results 24 hrs Laboratory Tests Test 06/24/16 07:15 Alanine Aminotransferase (ALT/SGPT) 35 Albumin 3.7 Albumin/Globulin Ratio 1.23 Alkaline Phosphatase 104 Anion Gap 16 Aspartate Amino Transf (AST/SGOT) 35 Basophils # 0.0 Basophils % 0.5 Blood Urea Nitrogen 16 Calcium Level 8.8 Carbon Dioxide Level 23 Chloride Level 108 Creatinine 0.72 Direct Bilirubin 0.00 Eosinophils # 0.3 Eosinophils % 4.5 Globulin 3.00 Glucose Level 94 Hematocrit 39.7 Hemoglobin 13.2 Indirect Bilirubin 0.4 Lymphocytes # 1.1 Lymphocytes % 18.5 Mean Corpuscular Hemoglobin 33.5 H Mean Corpuscular Hemoglobin Concent 33.1 Mean Corpuscular Volume 101.0 Mean Platelet Volume 8.0 # Monocytes # 0.6 Monocytes % 10.5 Neutrophils # 3.9 Neutrophils % 66.0 Nucleated Red Blood Cells # 0.0 Nucleated Red Blood Cells % 0.0 Platelet Count 232 # Potassium Level 3.9 Red Blood Count 3.93 L Red Cell Distribution Width 13.9 Sodium Level 143 Total Bilirubin 0.4 Total Protein 6.7 White Blood Count 5.9 # Medications Medications Current Medications Alprazolam (Xanax) 2 mg QHS PO Last administered on 06/23/16 21:34; Admin Dose 2 MG; Start 06/22/16 at 21:00 Atenolol (Tenormin) 25 mg BID PO Last administered on 06/24/16 09:29; Admin Dose 25 MG; Start 06/22/16 at 21:00 Atorvastatin Calcium (Lipitor) 40 mg QHS PO Last administered on 06/23/16 21: 34; Admin Dose 40 MG; Start 06/22/16 at 21:00 Cyclobenzaprine HCl (Flexeril) 10 mg QHS PO Last administered on 06/23/16 21: 34; Admin Dose 10 MG; Start 06/22/16 at 21:00 Fluoxetine HCl (Prozac) 40 mg DAILY PO Last administered on 06/24/16 09:30; Admin Dose 40 MG; Start 06/23/16 at 09:00 Acetaminophen/ Hydrocodone Bitart ([place] ()) 1 tab Q4H PRN PO PAIN Last administered on 06/24/16 09:28; Admin Dose 1 TAB; Start 06/22/16 at 18:00 Lisinopril (Zestril) 10 mg BID PO Last administered on 06/24/16 09:29; Admin Dose 10 MG; Start 06/22/16 at 21:00 Guaifenesin/ Dextromethorphan (Mucinex Dm) 1 tab BID PO Last administered on 09:29; Admin Dose 1 TAB; Start 06/22/16 at 21:00 Rivaroxaban 20 mg 20 mg HS PO Last administered on 06/23/16 21:34; Admin Dose 20 MG; Start 06/23/16 at 21:00 Ceftriaxone Sodium 50 ml @ 100 mls/hr Q24H IVPB Last administered on 17:35; Admin Dose 100 MLS/HR; Start 06/22/16 at 18:30 Sodium Chloride (NS) 1,000 ml @ 75 mls/hr [id number] IV ; Start 06/22/16 at 17:53 Ondansetron HCl (Zofran Inj) 4 mg Q6H PRN IV NAUSEA AND/OR VOMITING; Start 06/22 at 18:00 Acetaminophen (Tylenol Tab) 650 mg Q6H PRN PO PAIN LEVEL 1-3 OR FEVER; Start at 18:00 Docusate Sodium (Colace) 100 mg Q12H PRN PO CONSTIPATION; Start 06/22/16 at 18: 00 Magnesium Hydroxide (Milk Of Mag) 30 ml DAILY PRN PO CONSTIPATION; Start at 18:00 Pantoprazole (Protonix Tab) 40 mg DAILY PO Last administered on 06/24/16 09:29 ; Admin Dose 40 MG; Start 06/22/16 at 22:00 Aspirin (Aspirin) 81 mg DAILY PO Last administered on 06/24/16 09:28; Admin Dose 81 MG; Start 06/22/16 at 18:30 Levetiracetam (Keppra) 500 mg BID PO Last administered on 06/24/16 09:28; Admin Dose 500 MG; Start 06/22/16 at 22:00 Zolpidem Tartrate (Ambien) 5 mg HS PRN PO INSOMNIA Last administered on 21:34; Admin Dose 5 MG; Start 06/22/16 at 22:00 Promethazine HCl/ Codeine (Phenergan/ Codeine) 10 ml Q8H PRN PO COUGH Last administered on 06/23/16 21:35; Admin Dose 10 ML; Start 06/23/16 at 00:00 MAINOR MARTINO Jun 24, 2016 10:39
[2016-06-24] MEDS ORDERED: DILTIAZEM (CD) 240 MG CAP PO SCH (11:00)
[2016-06-24] MEDS ORDERED: DILT240C79 PO ×2 (12:15→12:35)
[2016-06-24] MEDS ORDERED: RIVA20TA PO ×2 (12:15→12:35)
[2016-06-24] MEDS ORDERED: LEVE-5 PO ×2 (12:15→12:35)
--- NOTE | 2016-06-24 12:36 | PDOCDIS ---
Discharge Instructions CONDITION Patient Condition: Stable HOME CARE INSTRUCTIONS: Diet Instructions: Reduced SodiumSpecial Diet: RENAL DIET ACTIVITY: Activity Restrictions: No Restrictions KENIA ALEGRIA MD Jun 24, 2016 12:36
--- NOTE | 2016-06-24 12:39 | DS ---
Date/Time of Note Date/Time of Note DATE: 06/24/16 TIME: 12:37 Discharge Summary Admission/Discharge Info Admit Date/Time Jun 22, 2016 at 17:03 Discharge Date/Time Final Diagnosis atrial fibrillation with rapid ventricular response. Patient Condition: Stable Hospital Course PAF- non valvular, new onset with RVR. Elevated [id number] score (at least 5) - cont xarelto 20mg daily - cont atenolol - add cardizem 240mg daily - no further cardiac evaluation required, will f/u as outpt with consideration for cardioversion if remains in afib HTN- controlled HLD- on statin PAD- stable, h/o of LE stent - cont asa and statin Mild - f/u as outpt Pupillary Asymmetry - CT head negative. Benign Neuro exam per Neurology consult - monitor as outpatient Seizure Disorder - placed back on keppra BID Home Meds Active Scripts Rivaroxaban* (Xarelto*) 20 Mg Tablet, 20 MG PO HS for 30 Days, #30 TAB Prov:KENIA ALEGRIA MD 06/24/16 Levetiracetam* (Keppra*) 500 Mg Tablet, 500 MG PO BID for 30 Days, #60 TAB Prov:KENIA ALEGRIA MD 06/24/16 Diltiazem Hcl* (Cardizem CD*) 240 Mg Cap.sr.24h, 240 MG PO DAILY for 30 Days, # 30 Prov:KENIA ALEGRIA MD 06/24/16 Reported Medications Atorvastatin* (Atorvastatin*) 40 Mg Tablet, 40 MG PO QHS, #30 TAB 11/03/15 Lisinopril* (Lisinopril*) 20 Mg Tablet, 20 MG PO BID, #30 TAB 11/03/15 Hydrocodone Bit-Acetaminophen* ([place]*) 10-325 Mg Tablet, 1 TAB PO Q4H Y for PAIN, TAB 11/03/15 Atenolol* (Atenolol*) 25 Mg Tablet, 25 MG PO BID, TAB 08/14/14 Alprazolam* (Xanax*) 2 Mg Tablet, 2 MG PO QHS, TAB 02/11/14 Cyclobenzaprine Hcl (Flexeril) 10 Mg Tablet, 10 MG PO QHS 05/27/10 Fluoxetine Hcl* (Prozac*) 40 Mg Capsule, 40 MG PO DAILY 05/27/10 Discontinued Reported Medications Vit D3/Folic Acid/B2/B6/B12 (Folgard Tablet) 1 Each Tablet, 1 TAB PO DAILY, TAB 11/03/15 Calcium Carbonate/Vitamin D3* (Os-Frantz 500+D*) 1 Tab Tablet, 1 TAB PO BID, TAB 08/14/14 Discontinued Scripts Cholecalciferol* (Vitamin D3*) 1,000 Unit Tablet, 44688 UNIT PO weekly for 90 Days, TAB Prov:SHARAN ZAVALA MD 05/06/16 Rivaroxaban* (Xarelto*) 10 Mg Tablet, 10 MG PO WITH DINNER for 30 Days, TAB Prov:SHARAN ZAVALA MD 05/06/16 Follow-up Plan Dr. Morgan in 1 week Pending Labs Laboratory Tests Test 06/24/16 07:15 Alanine Aminotransferase (ALT/SGPT) 35IU/L (13-69) Albumin 3.7g/dl (3.3-4.9) Albumin/Globulin Ratio 1.23 Alkaline Phosphatase 104IU/L (42-121) Anion Gap 16 (8-16) Aspartate Amino Transf (AST/SGOT) 35IU/L (15-46) Basophils # 0.010^3/ul (0.0-0.1) Basophils % 0.5% (0.0-2.0) Blood Urea Nitrogen 16mg/dl (7-20) Calcium Level 8.8mg/dl (8.4-10.2) Carbon Dioxide Level 23mmol/L (21-31) Chloride Level 108mmol/L (97-110) Creatinine 0.72mg/dl (0.44-1.00) Direct Bilirubin 0.00mg/dl (0.00-0.20) Eosinophils # 0.310^3/ul (0.0-0.5) Eosinophils % 4.5% (0.0-7.0) Globulin 3.00g/dl (1.3-3.2) Glucose Level 94mg/dl (70-220) Hematocrit 39.7% (37.0-47.0) Hemoglobin 13.2g/dl (12.0-16.0) Indirect Bilirubin 0.4mg/dl (0-1.1) Lymphocytes # 1.110^3/ul (0.8-2.9) Lymphocytes % 18.5% (15.0-51.0) Mean Corpuscular Hemoglobin 33.5pg (29.0-33.0) Mean Corpuscular Hemoglobin Concent 33.1g/dl (32.0-37.0) Mean Corpuscular Volume 101.0fl (82.0-101.0) Mean Platelet Volume 8.0fl (7.4-10.4) Monocytes # 0.610^3/ul (0.3-0.9) Monocytes % 10.5% (0.0-11.0) Neutrophils # 3.910^3/ul (1.6-7.5) Neutrophils % 66.0% (39.0-77.0) Nucleated Red Blood Cells # 0.010^3/ul (0.0-0.0) Nucleated Red Blood Cells % 0.0/100WBC (0.0-0.0) Platelet Count 98207^3/UL (140-440) Potassium Level 3.9mmol/L (3.5-5.1) Red Blood Count 3.9310^6/ul (4.20-5.40) Red Cell Distribution Width 13.9% (11.5-14.5) Sodium Level 143mmol/L (135-144) Total Bilirubin 0.4mg/dl (0.2-1.3) Total Protein 6.7g/dl (6.1-8.1) White Blood Count 5.910^3/ul (4.8-10.8) KENIA ALEGRIA MD Jun 24, 2016 12:39
[2016-06-24] MEDS: IPRATROPIUM (NEB) 0.5 MG/2.5 ML AMP HHN SCH (13:00)
[2016-06-24] MEDS: LEVALBUTEROL (NEB) 0.63 MG/3 ML AMP NEB SCH (13:00)
== END 2016-06-24 14:31 | disposition home or self-care (01) ==
LOC: E/R 13:52 → MS4 17:02 → UNDOADMOB 17:02 → MS4 17:03
PROVIDERS: ADMIT Internal Medicine; ATTEND Internal Medicine
DX: I48.91 Unspecified atrial fibrillation (principal); I10 Essential (primary) hypertension; E78.5 Hyperlipidemia, unspecified; I73.9 Peripheral vascular disease, unspecified; I35.0 Nonrheumatic aortic (valve) stenosis; J40 Bronchitis, not specified as acute or chronic; G40.909 Epilepsy, unspecified, not intractable, without status epilepticus; E11.9 Type 2 diabetes mellitus without complications; M19.90 Unspecified osteoarthritis, unspecified site; Z79.82 Long term (current) use of aspirin; Z88.1 Allergy status to other antibiotic agents; Z96.643 Presence of artificial hip joint, bilateral; Z90.710 Acquired absence of both cervix and uterus; Z90.49 Acquired absence of other specified parts of digestive tract; E55.9 Vitamin D deficiency, unspecified; I67.82 Cerebral ischemia; J34.9 Unspecified disorder of nose and nasal sinuses
CPT/HCPCS: 70450; 71275; 80048; 80053; 83735; 84443; 84484; 85025; 85610; 85730; 87040; 93005; 96365; 96366; 96374; 96375; 99285; G0378; G8978; G8979; J0696; J3475; J7030; Q9967